=== PATIENT | male | born 1950 | race Caucasian/White ===

== ENCOUNTER 2018-10-21 07:23 | Day surgery (SDC) | payer MEDICARE, OTHER ==
[~2018-10-21] VITALS: Ht 182.9 cm; Wt 105.6 kg
[2018-10-21] MEDS ORDERED: OMEPRAZOLE20 MG PO (07:52)
[2018-10-21] MEDS ORDERED: Cialis5 MG (07:52)
[2018-10-21] MEDS ORDERED: FINA5 PO (07:53)
[2018-10-21] MEDS ORDERED: ATOR40TA PO (07:53)
[2018-10-21] MEDS ORDERED: MIRALAX17 GM PO (07:54)
[2018-10-21] MEDS ORDERED: EZET10 PO (07:54)
--- NOTE | 2018-10-21 08:07 | NUR ---
Ambulatory in Day SurgeryPatient states colon prep results clear. History, Chart, Medications and Allergies reviewed before start of procedure.Lungs clear T/O to Auscultation. Patient confirms NPO status and agrees with scheduled surgery. Patient States Post-Procedure ride home has been arranged.
--- NOTE | 2018-10-21 08:41 | NUR ---
10/21/18 0841 Morgan Qureshi PATIENT DETERMINED TO BE ASA APPROPRIATE FOR PROPOFOL SEDATION PRIOR TO START OF PROCEDURE BY 3-LEAD EKG REVIEWED WITH PHYSICIAN PRIOR TO START OF PROCEDURE.Patient to ENDO 1History, Chart, Medications and Allergies reviewed before start of procedure.MONITOR INTACT WITH CONTINUOUS PULSE OXIMETRY AND INTERMITTENT BP.
== END 2018-10-21 22:39 | disposition home or self-care (01) ==
LOC: ORSCMMR 07:23 → ORD 08:30 → ORSCMMR 08:30
PROVIDERS: Internal Medicine Gastroenterology
PROC: 0DBL8ZX Excision of Transverse Colon, Via Natural or Artificial Opening Endoscopic, Diagnostic (ICD-10-PCS; principal; 2018-10-21 08:30)
PROC: 0DBK8ZX Excision of Ascending Colon, Via Natural or Artificial Opening Endoscopic, Diagnostic (ICD-10-PCS; principal; 2018-10-21 08:30)
DX: Z12.11 Encounter for screening for malignant neoplasm of colon (principal); D12.2 Benign neoplasm of ascending colon; D12.3 Benign neoplasm of transverse colon; E78.00 Pure hypercholesterolemia, unspecified; K21.9 Gastro-esophageal reflux disease without esophagitis; Z79.899 Other long term (current) drug therapy
CPT/HCPCS: 88305; J2704; J7120

== ENCOUNTER 2020-08-04 07:43 | Day surgery (SDC) | payer MEDICARE, OTHER ==
[~2020-08-04] VITALS: Ht 182.9 cm; Wt 106.1 kg
[~2020-08-04 07:43] MED LIST: ATOR40TA PO; Cialis5 MG; EZET10 PO; FINA5 PO; MIRALAX17 GM PO; OMEPRAZOLE20 MG PO; PROP60 PO
--- NOTE | 2020-08-04 11:44 | NUR ---
08/04/20 1144 Mili Aguirre 0.15ML OF EPI 1MG/ML ADDEDD TO BUPIVICAINE.
== END 2020-08-04 13:05 | disposition home or self-care (01) ==
LOC: ORSCSDS 07:43
PROVIDERS: Podiatrist Foot & Ankle Surgery
PROC: 0L8W0ZZ Division of Left Foot Tendon, Open Approach (ICD-10-PCS; principal; 2020-08-04 09:15)
DX: M20.42 Other hammer toe(s) (acquired), left foot (principal); Z79.899 Other long term (current) drug therapy
CPT/HCPCS: C1713; J0171; J0690; J1885; J2250; J2704; J3010; J7120